=== PATIENT | female | born 1985 | race Caucasian/White ===

== ENCOUNTER 2018-06-14 17:38 | Outpatient (CLI) | payer OTHER | END 2018-06-14 19:54 | disposition still patient (30) | LOC: NST 17:38 | DX: Z34.83 Encounter for supervision of other normal pregnancy, third trimester (principal) ==

== ENCOUNTER 2018-06-14 19:58 | Inpatient (IN) | payer OTHER ==
[~2018-06-14] VITALS: Ht 162.6 cm; Wt 69.9 kg
== END 2018-06-15 21:52 | disposition home or self-care (01) | DRG 778 ==
LOC: LDR 19:58
PROC: 4A1HXCZ Monitoring of Products of Conception, Cardiac Rate, External Approach (ICD-10-PCS; principal; 2018-06-14)
DX: O60.03 Preterm labor without delivery, third trimester (principal)

== ENCOUNTER 2018-06-17 07:51 | Outpatient (CLI) | payer OTHER | END 2018-06-17 11:07 | disposition home or self-care (01) | LOC: NST 07:51 | DX: Z34.83 Encounter for supervision of other normal pregnancy, third trimester (principal) ==

== ENCOUNTER 2018-07-06 12:43 | Outpatient (CLI) | payer OTHER | END 2018-07-06 14:58 | disposition home or self-care (01) | LOC: NST 12:43 | DX: Z34.83 Encounter for supervision of other normal pregnancy, third trimester (principal) ==

== ENCOUNTER 2018-07-13 10:14 | Outpatient (CLI) | payer OTHER | END 2018-07-13 10:50 | disposition home or self-care (01) | LOC: NST 10:14 | DX: Z34.83 Encounter for supervision of other normal pregnancy, third trimester (principal) ==

== ENCOUNTER 2018-07-22 10:43 | Inpatient (IN) | payer OTHER ==
[~2018-07-22] VITALS: Ht 162.6 cm; Wt 73.5 kg
[2018-07-22] MEDS ORDERED: PRENATAL TABLE1 EAC2 PO (15:30)
== END 2018-07-24 12:32 | DRG 805 ==
LOC: LDR 10:43 → SURG-SUITE 16:59 → OB/GYN 08-13 14:33
PROC: 10E0XZZ Delivery of Products of Conception, External Approach (ICD-10-PCS; principal; 2018-07-22)
PROC: 0KQM0ZZ Repair Perineum Muscle, Open Approach (ICD-10-PCS; 2018-07-22)
PROC: 4A1HXCZ Monitoring of Products of Conception, Cardiac Rate, External Approach (ICD-10-PCS; 2018-07-22)
PROC: 0W8NXZZ Division of Female Perineum, External Approach (ICD-10-PCS; 2018-07-22)
PROC: 4A033R1 Measurement of Arterial Saturation, Peripheral, Percutaneous Approach (ICD-10-PCS; 2018-07-22)
DX: O70.1 Second degree perineal laceration during delivery (principal); O60.14X0 Preterm labor third trimester with preterm delivery third trimester, not applicable or unspecified; Z37.0 Single live birth; Z3A.36 36 weeks gestation of pregnancy

== ENCOUNTER 2021-01-07 10:16 | Outpatient (CLI) | payer OTHER ==
[~2021-01-07 10:16] MED LIST: PRENATAL TABLE1 EAC2 PO
== END 2021-01-07 11:19 | disposition home or self-care (01) ==
LOC: NST 10:16
PROVIDERS: ATTEND Obstetrics & Gynecology
DX: Z34.83 Encounter for supervision of other normal pregnancy, third trimester (principal)